=== PATIENT | female | born 1965 | race Caucasian/White ===

== ENCOUNTER 2017-04-05 11:56 | Observation (INO) ==
[2017-04-05] MEDS ORDERED: Aspirin 81 MG TAB.CHEW PO ONE (12:26)
[2017-04-05] MEDS ORDERED: 0.9 % Sodium Chloride 500 ML IVC ONE (12:26)
[2017-04-05 12:36] LABS: Basophils # 0.1 K/mcL (0.0-0.2); Basophils % 0.7 %; Eosinophils # 0.4 K/mcL (0.0-0.6); Eosinophils % 2.9 %; Hematocrit 41.3 % (35.3-44.9); Hemoglobin 12.5 g/dL (11.5-15.4); Immature Granulocytes % 0.4 % (0-4); Lymphocytes # 3.4 K/mcL (0.6-4.6); Lymphocytes % 24.3 %; Mean Corpuscular HGB Conc 30.3 g/dL (31.6-35.5); Mean Corpuscular Hemoglobin 22.9 pg (28.0-33.3); Mean Corpuscular Volume 75.6 fL (83.0-100.0); Mean Platelet Volume 9.2 fL (9.4-12.4); Monocytes # 0.8 K/mcL (0.0-1.3); Monocytes % 5.6 %; Neutrophils # 9.2 K/mcL (1.6-8.9); Platelet Count 329 K/mcL (140-400); Red Blood Count 5.46 M/mcL (3.82-4.97); Red Cell Distribution Width 15.7 % (11.5-14.5); Segmented Neutrophils % 66.1 %
[2017-04-05 12:52] LABS: BUN/Creatinine Ratio 19 (6-26); Blood Urea Nitrogen 12 mg/dL (6-20); Calcium 9.2 mg/dL (8.6-10.3); Carbon Dioxide 27 mEq/L (23-29); Chloride 101 mEq/L (98-107); Glucose 123 mg/dL (70-105); Osmolality,Calculated 283 (280-300); Potassium 3.8 mEq/L (3.5-5.1); Sodium 136 mEq/L (136-145); eGFR For African Americans > 60 (> 60); eGFR For Non-African Americans > 60 (> 60)
--- NOTE | 2017-04-05 13:15 | Emergency Department Note ---
Disposition Clinical Impression: Unstable angina pectoris Disposition: Admitted As Inpatient Condition: Fair Referrals: Aylin Ohara MD [Partnered Physician] - Forms: ED Satisfaction Letter Time of Disposition: 15:39 Chest Pain HPI - General Chief Complaint: ED Chest Pain Stated Complaint: CP Time Seen by Provider: 04/05/17 12:08 Source: patient Limitations: no limitations Vital Signs Reviewed: Yes Nursing Notes Reviewed: Yes - History of Present Illness HPI Narrative: 51-year-old female presented to the emergency department complaining of chest pain. Patient is also having back pain that is right between her shoulder blades. Patient has no history of aneurysms. She does have history of previous mini strokes. Patient is on multiple OCP due to endometriosis. Patient states this chest pain began approximately 4 days ago. She says it is in the center of her chest radiating to the left side. She says is a 6/10 she is goes up more as pressure. She has not taken anything for this. Patient says she has had no nausea or vomiting with this. Says she feels like there is a sharp stabbing pain every once in while when her heart is beating that she can feel which is very abnormal for her. Patient has no other cardiac issues. She has no cardiac family history. Patient has no other complaints including no headaches, blurry vision, neck pain, back pain, fevers, chills, nausea, vomiting, shortness of breath, abdominal pain, pain or tingling in any arms or legs, changes in bowel movement, pain with urination or any generalized weakness. Severity scale (1-10): 7 - Related Data Home Medications Medication Instructions Recorded Confirmed Aspirin 01/08/17 Omeprazole 01/08/17 Spironolactone 01/08/17 metFORMIN 01/08/17 Allergies Allergy/AdvReac Type Severity Reaction Status Date / Time venom-honey bee AdvReac Swelling Verified 04/05/17 12:13 [bee venom (honey bee)] of Lip/Tongue/Throat Review of Systems: 10 point review of systems done and negative unless otherwise stated in history of present illness. All systems ED: reviewed and negative except as stated. Review of Systems: As Per HPI Chest Pain PMH - Past Medical History Medical history: Reports: TIA, other Surgical history: Reports: cholecystectomy, orthopedic, other Psychiatric history: Reports: no psych history SLOT FLOORPERSON history: Reports: non-contributory - Social History Smoking Status: 2nd Hand Smoke Exposure Alcohol use: Reports: none Drug use: Reports: none Physical Exam - General Limitations: no limitations General appearance: alert, in no apparent distress - Head Head exam: atraumatic, normocephalic, normal inspection - Eye Eye exam: Present: normal appearance, PERRL, EOMI - ENT ENT exam: normal exam, normal oropharynx, mucous membranes moist - Neck Neck exam: Present: normal inspection, full ROM, trachea midline - Chest Chest inspection: Present: normal inspection, symmetric chest wall rise - Respiratory Respiratory exam: Present: normal lung sounds bilaterally. Absent: respiratory distress, wheezes, stridor, accessory muscle use, prolonged expiratory phase - Cardiovascular Cardiovascular exam: Present: regular rate, normal rhythm, normal heart sounds - Abdominal Exam Abdominal exam: Present: soft, Non-Tender. Absent: tenderness, distention, guarding, rebound, rigidity - Extremities Exam Extremities exam: Present: normal inspection, full ROM. Absent: tenderness, pedal edema - Expanded Lower Extremity Exam Neurovascular/Tendon exam: Present: normal capillary refill. Absent: pulse deficit, motor deficit, sensory deficit, tendon deficit Gait: observed and normal - Back Exam Back exam: Present: normal inspection, full ROM. Absent: tenderness, CVA tenderness (R), CVA tenderness (L) - Neurological Exam Neurological exam: Present: alert, oriented X3 - Skin Skin exam: Present: warm, dry, intact, normal color Course Course Narrative: 51-year-old female presents to the emergency department with chest pain. There is worry about possible peroneal motion or aortic aneurysm. So we will get CT angios of her chest. We will also give basics chest pain workup including CBC and BMP as well as troponin as well as EKG and chest x-ray. Patient's okay with that plan. Disposition pending results. Vital Signs Temperature 98.0 F 04/05/17 12:10 Pulse Rate 95 04/05/17 12:10 Respiratory Rate 04/05/17 12:10 Blood Pressure 140/87 04/05/17 12:10 O2 Sat by Pulse Oximetry 99 04/05/17 12:10 Temperature 98.0 F 04/05/17 12:10 Pulse Rate 95 04/05/17 12:10 Respiratory Rate 18 04/05/17 12:10 Blood Pressure 140/87 04/05/17 12:10 O2 Sat by Pulse Oximetry 99 04/05/17 12:10 Oxygen Delivery Oxygen Delivery Room Air Chest Pain - MDM Narrative Medical decision making narrative: 51-year-old female presents in the emergency department with chest pain she has a history of PFO. She has not seen a test operator since being diagnosed rectally 10:15 years ago where she had an echo and services that time. She does not have a test operator. Patient's chest pain has been going on for 3 days but did worsen today is with her caused her to come in. We did give patient aspirin but did not give nitroglycerin due to her being mildly hypotensive. Did do chest x-ray which was normal as well as labs that were normal including a normal troponin. We did do CT angios of the chest as patient does take OCPs in the umbilicus could be a pulmonary embolism this came back negative for pulmonary and was not or aortic aneurysm. There was no signs pneumonia as well. Due to patient not having recent stress test or echocardiogram without admission would be no serious she is still having chest pain. Patient agreed with this plan. I spoke with the hospitalist, Dr. Santana agreed to admit the patient to their service. Patient is admitted in stable condition. Chest CTA 04/05/17 12:26 IMPRESSION: No evidence of pulmonary embolism or acute pulmonary abnormality. D/ / Ravi Elkins MD / Ravi Elkins MD Interpreting Provider: Ravi Elkins MD Chest X-Ray 04/05/17 12:26 IMPRESSION: No acute process. D/ / Ravi Elkins MD / Ravi Elkins MD Interpreting Provider: Ravi Elkins MD - Medical Records Medical records reviewed: Yes I reviewed the patient's medical records. - Lab Data Lab results reviewed: Yes I reviewed the patient's lab results. Result diagrams: 04/05/17 12:15 04/05/17 12:15 Lab Results 01/04/05/17 04/05/17 Range/Units 12:15 12:15 12:15 WBC 14.0 H (4.3-11.1) K/mcL RBC 5.46 H (3.82-4.97) M/mcL Hgb 12.5 (11.5-15.4) g/dL Hct 41.3 (35.3-44.9) % MCV 75.6 L (83.0-100.0) fL MCH 22.9 L (28.0-33.3) pg MCHC 30.3 L (31.6-35.5) g/dL RDW 15.7 H (11.5-14.5) % Plt Count 329 (140-400) K/mcL MPV 9.2 L (9.4-12.4) fL Immature Gran % 0.4 (0-4) % Seg Neutrophils % 66.1 % Lymphocytes % 24.3 % Monocytes % 5.6 % Eosinophils % 2.9 % Basophils % 0.7 % Neutrophils # 9.2 H (1.6-8.9) K/mcL Lymphocytes # 3.4 (0.6-4.6) K/mcL Monocytes # 0.8 (0.0-1.3) K/mcL Eosinophils # 0.4 (0.0-0.6) K/mcL Basophils # 0.1 (0.0-0.2) K/mcL PT 11.0 (9.4-12.1) Seconds INR 1.0 APTT 33.0 (26.0-36.0) Seconds Sodium (136-145) mEq/L Potassium (3.5-5.1) mEq/L Chloride (98-107) mEq/L Carbon Dioxide (23-29) mEq/L BUN (6-20) mg/dL Creatinine (0.60-1.20) mg/dL Est GFR ( Amer) (> 60) Est GFR (Non-Af Amer) (> 60) BUN/Creatinine Ratio (6-26) Glucose (70-105) mg/dL Calculated Osmolality (280-300) Calcium (8.6-10.3) mg/dL Troponin I (< 0.04) ng/mL B-Natriuretic Peptide 18 (Less than 100) pg/mL 01/29/18 01/29/18 Range/Units 12:15 12:15 WBC (4.3-11.1) K/mcL RBC (3.82-4.97) M/mcL Hgb (11.5-15.4) g/dL Hct (35.3-44.9) % MCV (83.0-100.0) fL MCH (28.0-33.3) pg MCHC (31.6-35.5) g/dL RDW (11.5-14.5) % Plt Count (140-400) K/mcL MPV (9.4-12.4) fL Immature Gran % (0-4) % Seg Neutrophils % % Lymphocytes % % Monocytes % % Eosinophils % % Basophils % % Neutrophils # (1.6-8.9) K/mcL Lymphocytes # (0.6-4.6) K/mcL Monocytes # (0.0-1.3) K/mcL Eosinophils # (0.0-0.6) K/mcL Basophils # (0.0-0.2) K/mcL PT (9.4-12.1) Seconds INR APTT (26.0-36.0) Seconds Sodium 136 (136-145) mEq/L Potassium 3.8 (3.5-5.1) mEq/L Chloride 101 (98-107) mEq/L Carbon Dioxide 27 (23-29) mEq/L BUN 12 (6-20) mg/dL Creatinine 0.64 (0.60-1.20) mg/dL Est GFR ( Amer) > 60 (> 60) Est GFR (Non-Af Amer) > 60 (> 60) BUN/Creatinine Ratio 19 (6-26) Glucose 123 H (70-105) mg/dL Calculated Osmolality 283 (280-300) Calcium 9.2 (8.6-10.3) mg/dL Troponin I < 0.03 (< 0.04) ng/mL B-Natriuretic Peptide (Less than 100) pg/mL - Radiology Data Radiology results reviewed: Yes I reviewed the patient's radiology results. - EKG Data EKG attestation: Yes I reviewed and interpreted this EKG. EKG results narrative: EKG done at 1216 reviewed by myself and the attending shows sinus tachycardia at a rate of 116, CA 149, QRS 82, QTc 382 with a leftward axis. There is no acute ST changes no acute T-wave changes no other signs of ischemia. No signs of hypertrophy or heart block or heart strain. No signs of WPW/Brugada syndrome. Overall this EKG is unchanged when compared with old one done 04/15/04 Heart Score - Score History: Moderately Suspicious EKG: Non Specific repolarisation Disturbance Age: 45-65 Risk Factors: 1-2 risk factors Troponin: Less than normal limit HEART Score Total: 4 Attestation Statement - Attestation Attestation: I, Jordin Holley DO, examined this patient [id number] and my medical decision-making was reviewed with Dr. Dwight Bailey , Resident Physician. I agree with the documented findings, disposition and treatment plan as described except to the extent set forth below. Please see my progress notes for details. 51-year-old female presents emergency room with chest pressure and discomfort that has a scintillating like symptom presents here to the emergency room. 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 Patient is currently on a full aspirin twice a day. Denies any other blood thinners. He said trauma or injury. Denies fevers chills nausea vomiting diarrhea. Denies any headache vision changes. Shortness of breath which has a chest pressure and pain. Patient has tachycardia on EKG with no acute ST segment elevation or abnormality. Patient is concerning for cardiac versus pulmonary-related source of symptoms. She has no history of blood clot in her lungs does have a patent foramen ovale as well as history of TIAs and clots. Prophylactically patient will be evaluated with EKG chest x-ray and cardiac evaluation. She also CT of the chest ruling out any angiography related issues including dissection or aneurysm or blood clots. Patient will be recommended for admission once his workup is completed. Patient was symptom- free at this point in no acute symptoms pain or issues at this time. Currently she denies any issues at this point. Physical exam is unremarkable she is sitting upright in bed speaking full sentences conversationally without any acute distress or issue. Her lungs are clear heart is regular but tachycardic. Abdomen soft nontender nondistended with no guarding or rigidity and no peritoneal symptoms. Patient has no signs of pitting edema. She moves all 4 shoulders without any difficulty she is alert she is oriented. Patient will most likely need admission for definitive management. 1500 Patient is otherwise stable. CT angiography of the chest is negative. Patient otherwise is symptom free at this point. The concern is for the chest tightness pressure at this time. Patient electively decided to be admitted to the hospital. Aspirin has been provided. No other concerns or issues are noted. Patient will be admitted.
[2017-04-05] MEDS ORDERED: Naloxone 0.4 MG/ML INJ IVP PRN (16:08)
--- NOTE | 2017-04-05 16:19 | Event Note ---
Date of Encounter: 04/05/17 Time of Encounter: 16:17 1 chest pain Telemetry, troponins, aspirin Lipid panel, statin, nitroglycerin as needed Stress test and echocardiogram in the morning 2. Diabetes type 2 not insulin-dependent, use insulin sliding scale 3. Tachycardia, nonspecific, consider viral infection 4. Possible history of ASD will be confirmed with echocardiogram 5. History of polycystic ovarian syndrome 6. Obstructive sleep apnea 7. GERD 8. History of TIAs Omeprazole for GI prophylaxis and subcutaneous heparin for DVT prophylaxis. The patient will be admitted for observation, full code. Time spent on this admission 40 minutes. H&P will be completed by resident Zunilda Garcia
--- NOTE | 2017-04-05 16:22 | Internal Med History&Physical ---
<Zunilda Villegas - Last Filed: 04/05/17 16:52> Date of Encounter: 04/05/17 Time of Encounter: 16:00 Assessment and Plan (1) Chest pain Current visit: Yes Status: Acute Chest pain since . While washing dishes or lying down. Sharp, radiates across chest and between scapula. Worse with lying down. last 20-40 min. Nothing makes it better. consider pericarditis vs ACS. CTA ruled out aortic dissection and PE EKG sinus tachycardia with no ST changes troponin < 0.03 CTA normal, no PE CXR no acute cardiopulmonary process She reports history of patent foramen oval. order echo plan -Stress test and echocardiogram in the morning -Telemetry -trend troponins -aspirin -Lipid panel -statin -nitroglycerin prn Qualifiers: Qualified Code(s): R07.9 - Chest pain, unspecified (2) Tachycardia Current visit: Yes Status: Acute Unknown why tachycardia. Possible infectious etiology such as viral. WBC 14 ordered urinalysis monitor WBC (3) Diabetes Current visit: Yes Status: Acute history of diabetes taking metformin glucose stable continue to monitor Low dose sliding scale accu checks Qualifiers: Qualified Code(s): E11.9 - Type 2 diabetes mellitus without complications (4) Polycystic ovarian syndrome Current visit: Yes Status: Acute history of POS. used to take OCP but stopped due to TIA. (5) GERD (gastroesophageal reflux disease) Current visit: Yes Status: Acute history of GERD continue PPI Qualifiers: Esophagitis presence: esophagitis presence not specified Qualified Code(s) : K21.9 - Gastro-esophageal reflux disease without esophagitis (6) History of TIA (transient ischemic attack) Current visit: Yes Status: Acute History of multiple TIA due to taking control pills for polycystic ovarian syndrome. She reports she was also told she has some type of blood clotting disorder for which she takes a baby aspirin everyday. (7) Obstructive sleep apnea Current visit: Yes Status: Acute (8) DVT prophylaxis Current visit: Yes Status: Acute heparin sq Internal Medicine - H&P: HPI Chief complaint: chest pain Admitted From: Emergency Dept Plans for Post Hospital Care: Home History of present illness: Ms. Rojas is a 51 year old female with a past medical history of TIA, polycystic ovary disease, patent foramen oval who presented to [facility] complaining of chest pain that began . She stated she was washing dishes when she had a sharp pain go across her chest to the right and between her shoulder blades. She was dizzy, diaphoresis, and short of breathe. She stated nothing made it better but she noticed it more when she would lay down in bed at night. The pain would last from 20-40minutes then go away. This happened a few times over the weekend and then when it happened today she went to her family doctor who sent her to the ED. She denies recent sickness, travel, trauma. She has never had a NE, PE, DVT but believes she has some blood clotting disorder for which she takes a baby aspirin for daily. She has had multiple TIAs years ago when she was on control for POS. She no longer takes OCP. She reports having been told she has a patent foramen oval. She does not drink alcohol, drugs, or smoke. She has no family history of heart disease. 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 She does not know when her last echo was and does not have a medical affairs manager. In ED EKG showed sinus tachycardia with no change in ST segment. Troponin was normal. CTA normal. CXR normal. Upon my examination she did not have chest pain. She is full code. Past Med Surg Social Fam HX - Past Medical History Medical history: TIA, other (polycystic ovarian syndrome) Psychiatric history: no psych history - Past Surgical History Surgical History: cholecystectomy, orthopedic, other - Social History Smoking Status: 2nd Hand Smoke Exposure Smokeless Tobacco Status: No Alcohol use: none Drug use: none Current living situation: Home - Independent - Family History Mother Hx Family Endocrine Disorder: Yes (diabetes) Internal Medicine - H&P: Meds Aspirin 325 mg PO BID 01/08/17 [History] Omeprazole [PriLOSEC] 40 mg PO DAILY 01/08/17 [History] Spironolactone [Aldactone] 25 mg PO DAILY 01/08/17 [History] metFORMIN [Glucophage] 500 mg PO BIDWM 01/08/17 [History] Albuterol Sulfate [Proair Hfa] 2 puff IH Q4H PRN 04/05/17 [History] Fluticasone Propionate Nasal [Flonase] 2 spray NS BID PRN 04/05/17 [History] Ipratropium [place] 2 spray NS BID PRN 04/05/17 [History] Mometasone/Formoterol [Dulera 200 Mcg/5 Mcg Inhaler] 2 puff IH BID PRN 04/05/17 [History] Phenazopyridine [Pyridium] 100 mg PO TIDWM 04/05/17 [History] Sulfamethoxazole/Trimeth DS [Bactrim DS] 1 each PO BID 04/05/17 [History] Turmeric Root Extract [Turmeric] 500 mg PO DAILY 04/05/17 [History] 3 Allergy/AdvReac Type Severity Reaction Status Date / Time venom-honey bee AdvReac Swelling Verified 04/05/17 12:13 [bee venom (honey bee)] of Lip/Tongue/Throat All Systems PM: A 10-system review of systems was performed and is negative for pertinent findings except as documented above in the HPI. - Constitutional Constitutional: no chills, no fever(s), no weakness - EENT Eyes: no change in vision - Cardiovascular Cardiovascular ROS IM: chest pain, diaphoresis, lightheadedness, paroxysmal nocturnal dyspnea, no palpitations, no syncope - Respiratory Respiratory: dyspnea, no cough, no hemoptysis, no wheezing - Gastrointestinal Gastrointestinal: no abdominal pain, no hematemesis, no melena, no nausea, no vomiting - Musculoskeletal Musculoskeletal ROS IM: back pain - Integumentary Integumentary IM: new lesions (scratches ) - Neurological Neurological ROS: no abnormal gait - Constitutional Vitals: Temp Pulse Resp BP Pulse Ox 98.0 F 95 18 140/87 99 04/05/17 12:10 04/05/17 12:10 04/05/17 12:10 04/05/17 12:10 04/05/17 12:10 General appearance: Present: A&O X 3, pleasant, no acute distress - Head Head exam: Present: atraumatic, normal inspection - Eye Eye exam: Present: normal appearance. Absent: scleral icterus - Respiratory Respiratory exam: Present: CTAB. Absent: rales, wheezes - Cardiovascular Cardiovascular exam: Present: RRR, +S1, +S2. Absent: clicks - GI/Abdominal GI/Abdominal exam: Present: normal bowel sounds, soft. Absent: tenderness - Extremities Exam Extremities exam: Present: normal inspection. Absent: tenderness - Neurological Exam Neurological exam: Present: alert, oriented X3 - Psychiatric Psychiatric exam: Present: normal affect, normal mood - Skin Skin exam: Present: dry, excoriation, intact Internal Med - H&P Results - Labs CBC & Chem 7: 04/05/17 12:15 04/05/17 12:15 Labs: Short CBC 04/05/17 Range/Units 12:15 WBC 14.0 H (4.3-11.1) K/mcL Hgb 12.5 (11.5-15.4) g/dL Hct 41.3 (35.3-44.9) % Plt Count 329 (140-400) K/mcL Neutrophils # 9.2 H (1.6-8.9) K/mcL BMP 04/05/17 12:15 Sodium 136 Potassium 3.8 Chloride 101 Carbon Dioxide 27 BUN 12 Creatinine 0.64 Glucose 123 H Calcium 9.2 Cardiac Enzymes 04/05/17 Range/Units 12:15 Troponin I < 0.03 (< 0.04) ng/mL - Impressions ITS Impressions Chest CTA 04/05/17 12:26 IMPRESSION: No evidence of pulmonary embolism or acute pulmonary abnormality. D/ / Ravi Elkins MD / Ravi Elkins MD Interpreting Provider: Ravi Elkins MD Chest X-Ray 04/05/17 12:26 IMPRESSION: No acute process. D/ / Ravi Elkins MD / Ravi Elkins MD Interpreting Provider: Ravi Elkins MD <Ole Ortiz H - Last Filed: 04/05/17 17:34> Date of Encounter: 04/05/17 Internal Medicine - H&P: HPI History of present illness: Ms. Rojas is a 51 year old female All Systems PM: A 10-system review of systems was performed and is negative for pertinent findings except as documented above in the HPI. - Constitutional Vitals: Temp Pulse Resp BP Pulse Ox 98.1 F 89 18 115/54 98 04/05/17 16:59 04/05/17 16:59 04/05/17 16:59 04/05/17 16:59 04/05/17 16:59 Internal Med - H&P Results - Labs CBC & Chem 7: 04/05/17 12:15 04/05/17 12:15 - Attending Attestation 1 chest pain Telemetry, troponins, aspirin Lipid panel, statin, nitroglycerin as needed Stress test and echocardiogram in the morning 2. Diabetes type 2 not insulin-dependent, use insulin sliding scale 3. Tachycardia, nonspecific, consider viral infection 4. Possible history of ASD will be confirmed with echocardiogram 5. History of polycystic ovarian syndrome 6. Obstructive sleep apnea 7. GERD 8. History of TIAs Omeprazole for GI prophylaxis and subcutaneous heparin for DVT prophylaxis. The patient will be admitted for observation, full code. Time spent on this admission 40 minutes. Additional past medical history: Endometriosis, diabetes type 2 not insulin- dependent, GERD, TIAs, obstructive sleep apnea, possible ASD, migraines Surgical history cholecystectomy, back surgeries, cataract surgeries, tonsillectomy and adenoidectomy Family history father with hypertension, sister with seizures and narcolepsy. Mother with hypertension and diabetes I examined this patient and my medical decision-making was reviewed with the Resident Physician. I agree with the documented findings, disposition and treatment plan as described except to the extent set forth below.
[2017-04-05] MEDS ORDERED: Nitroglycerin 0.4 MG TAB.SUBL SL PRN (16:31)
[2017-04-05 17:05] LABS: Chol/HDL Ratio 4.4 (0-4.9); Cholesterol 203 mg/dL (< 200); HDL Cholesterol 46 mg/dL (40-59); LDL Cholesterol,Calculated 121 mg/dL (0-99); Triglycerides 181 mg/dL (< 150)
[2017-04-05] MEDS: *HR* Heparin 5,000 UNIT/ML VIAL SQ SCH (18:52)
[2017-04-05] MEDS: Acetaminophen 325 MG TABLET PO PRN (21:26)
[2017-04-06 01:18] LABS: Bilirubin,Urine Negative (Negative); Blood,Urine Trace (Negative); Clarity,Urine Cloudy (Clear); Color,Urine Yellow (Yellow); Glucose,Urine (UA) Normal (Normal); Ketones,Urine Negative (Negative); Leukocyte Esterase,Urine Moderate (Negative); Nitrite,Urine Positive (Negative); PH,Urine 6.5 pH Units (5.0-8.0); Protein,Urine Negative (Neg-Trace); Specific Gravity,Urine 1.018 (1.010-1.025); Urobilinogen,Urine Normal (Normal)
[2017-04-06 01:19] LABS: Basophils # 0.1 K/mcL (0.0-0.2); Basophils % 0.6 %; Eosinophils # 0.3 K/mcL (0.0-0.6); Eosinophils % 2.4 %; Hemoglobin 11.4 g/dL (11.5-15.4); Immature Granulocytes % 0.2 % (0-4); Lymphocytes # 3.9 K/mcL (0.6-4.6); Lymphocytes % 34.5 %; Mean Corpuscular HGB Conc 29.2 g/dL (31.6-35.5); Mean Corpuscular Hemoglobin 23.2 pg (28.0-33.3); Mean Corpuscular Volume 79.3 fL (83.0-100.0); Mean Platelet Volume 9.6 fL (9.4-12.4); Monocytes # 0.8 K/mcL (0.0-1.3); Monocytes % 6.9 %; Neutrophils # 6.2 K/mcL (1.6-8.9); Platelet Count 303 K/mcL (140-400); Red Blood Count 4.92 M/mcL (3.82-4.97); Red Cell Distribution Width 15.9 % (11.5-14.5); Segmented Neutrophils % 55.4 %
[2017-04-06 01:22] LABS: Bacteria,Urine Many per hpf (None-Few); Hyaline Casts,Urine None Seen per lpf (None-Few); RBC,Urine 0-3 per hpf (0-3); Squamous Epithelial Cell,Urine Many per lpf (None-Few)
[2017-04-06 01:36] LABS: BUN/Creatinine Ratio 21 (6-26); Blood Urea Nitrogen 15 mg/dL (6-20); Calcium 8.9 mg/dL (8.6-10.3); Carbon Dioxide 25 mEq/L (23-29); Chloride 105 mEq/L (98-107); Glucose 136 mg/dL (70-105); Osmolality,Calculated 289 (280-300); Sodium 138 mEq/L (136-145); eGFR For African Americans > 60 (> 60); eGFR For Non-African Americans > 60 (> 60)
[2017-04-06] MEDS: *HR* Heparin 5,000 UNIT/ML VIAL SQ SCH ×2 (06:12→18:21)
[2017-04-06] MEDS: Acetaminophen 325 MG TABLET PO PRN (06:14)
[2017-04-06] MEDS ORDERED: Regadenoson 0.4 MG/5 ML SYRINGE IVP ONE (06:36)
[2017-04-06] MEDS: Insulin LISPRO 300 UNITS/3 ML VIAL SQ SCH ×3 (07:51→17:31)
[2017-04-06] MEDS: Aspirin Enteric Coated 81 MG Tablet PO SCH (10:58)
[2017-04-06] MEDS: Spironolactone 25 MG TABLET PO SCH (10:58)
--- NOTE | 2017-04-06 12:56 | Internal Med Progress Note ---
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 Qualified Code(s): E11.9 - Type 2 diabetes mellitus without complications (3) Tachycardia Current Visit: Yes Status: Acute Assessment and plan: Likely secondary to UTI IV fluids (4) Polycystic ovarian syndrome Current Visit: Yes Status: Acute (5) History of TIA (transient ischemic attack) Current Visit: Yes Status: Acute Assessment and plan: ASA (6) Obstructive sleep apnea Current Visit: Yes Status: Acute (7) UTI (urinary tract infection) Current Visit: Yes Status: Acute Assessment and plan: Rocephin Send culture Qualifiers: Urinary tract infection type: acute cystitis Hematuria presence: without hematuria Qualified Code(s): N30.00 - Acute cystitis without hematuria - Subjective Interval history: Complains of dysuria, denies any chest pain, no abdominal pain, no fevers, no diarrhea, no chills, palpitations at times - Constitutional Vitals: Temp Pulse Resp BP Pulse Ox 98.0 F 88 18 133/85 99 04/06/17 10:56 04/06/17 10:56 04/06/17 10:56 04/06/17 10:56 04/06/17 10:56 General appearance: Present: A&O X 3, pleasant, no acute distress, obese - Head Head exam: Present: atraumatic, normocephalic - Eye Eye exam: Present: PERRL, conjuntiva pink, sclera anicteric Pupils: Present: PERRL - Neck Neck exam general surgery: Present: supple, trachea midline. Absent: lymphadenopathy - Respiratory Respiratory exam: Present: CTAB. Absent: accessory muscle use, rales, rhonchi, wheezes - Cardiovascular Cardiovascular exam: Present: RRR, +S1, +S2. Absent: diastolic murmur, gallop, rubs, systolic murmur - GI/Abdominal GI/Abdominal exam: Present: normal bowel sounds, soft, no peritoneal signs. Absent: distended, tenderness - Extremities Exam Extremities exam: Present: warm, radial pulses palpable and symmetrical. Absent : calf tenderness, cyanotic, pedal edema - Neurological Exam Neurological exam: Present: CN II-XII intact, oriented X3, no focal deficits. Absent: pronater drift, facial droop, speech deficit - Skin Skin exam: Present: dry, intact Internal Medicine: Result - Labs CBC & Chem 7: 04/06/17 00:51 04/06/17 00:51 Labs: Short CBC 04/06/17 Range/Units 00:51 WBC 11.2 H (4.3-11.1) K/mcL Hgb 11.4 L (11.5-15.4) g/dL Hct 39.0 (35.3-44.9) % Plt Count 303 (140-400) K/mcL Neutrophils # 6.2 (1.6-8.9) K/mcL BMP 04/06/17 00:51 Sodium 138 Potassium 4.0 Chloride 105 Carbon Dioxide 25 BUN 15 Creatinine 0.71 Glucose 136 H Calcium 8.9 Cardiac Enzymes 04/05/17 04/06/17 Range/Units 18:17 00:51 Troponin I < 0.03 < 0.03 (< 0.04) ng/mL Urine 04/06/17 Range/Units 01:00 Urine Color Yellow (Yellow) Urine Clarity Cloudy A (Clear) Urine pH 6.5 (5.0-8.0) pH Units Ur Specific [place] 1.018 (1.010-1.025) Urine Protein Negative (Neg-Trace) mg/dL Urine Glucose (UA) Normal (Normal) mg/dL - ABG Interpretation ABG results: PT/INR, D-dimer PT 11.0 Seconds (9.4-12.1) 04/05/17 12:15 Consult Discharge Plan - Plan Referrals: Aylin Ohara MD [Primary Care Provider] - 04/09/17 2:00 pm
[2017-04-06] MEDS: cefTRIAXone 1,000 MG in Water for inj. (sterile) 10 ML IVP SCH (14:27)
[2017-04-06] MEDS: 0.9 % Sodium Chloride 1,000 ML IVC SCH (14:27)
--- NOTE | 2017-04-06 19:35 | Electrocardiograph Report ---
[place] [id number] Test Date: 2017-04-05 Pat Name: Carrol Rojas Department: 104 Room: 3B13 Gender: F [employer] Specialist: : [id number] Requested By: Dwight Bailey Order Number: [id number] Reading MD: Maria Isabel Siddiqui Measurements Intervals [place] Rate: 116 P: 37 TN: 149 QRS: -26 QRSD: 82 T: 28 QT: 313 QTc: 382 Interpretive Statements SINUS TACHYCARDIA BORDERLINE LEFT AXIS DEVIATION ABNORMAL RHYTHM ECG Electronically Signed On 04-06-2017 19:33:37 EST by Maria Isabel Siddiqui
[2017-04-07] MEDS: 0.9 % Sodium Chloride 1,000 ML IVC SCH (04:00)
[2017-04-07] MEDS: *HR* Heparin 5,000 UNIT/ML VIAL SQ SCH (05:20)
[2017-04-07] MEDS: Budesonide/Formoterol 160/4.5 MDI IH SCH (06:56)
[2017-04-07] MEDS: cefTRIAXone 1,000 MG in Water for inj. (sterile) 10 ML IVP SCH (08:04)
[2017-04-07] MEDS: Spironolactone 25 MG TABLET PO SCH (08:05)
[2017-04-07] MEDS: Aspirin Enteric Coated 81 MG Tablet PO SCH (08:05)
[2017-04-07] MEDS: Insulin LISPRO 300 UNITS/3 ML VIAL SQ SCH ×2 (08:12→11:42)
[2017-04-07 08:14] VITALS: BP 118/80
--- NOTE | 2017-04-07 09:55 | Discharge Summary ---
Date of Encounter: 04/07/17 Time of Encounter: 09:51 - Discharge Diagnosis (1) Chest pain Priority: Primary Status: Acute Qualifiers: Qualified Code(s): R07.9 - Chest pain, unspecified (2) UTI (urinary tract infection) Priority: Secondary Status: Acute Qualifiers: Urinary tract infection type: acute cystitis Hematuria presence: without hematuria Qualified Code(s): N30.00 - Acute cystitis without hematuria (3) Tachycardia Priority: Secondary Status: Acute Comments: Secondary to urinary tract infection (4) Polycystic ovarian syndrome Priority: Secondary Status: Acute (5) History of TIA (transient ischemic attack) Priority: Secondary Status: Acute (6) Obstructive sleep apnea Priority: Secondary Status: Acute (7) Diabetes Priority: Secondary Status: Acute Qualifiers: Diabetes mellitus type: type 2 Diabetes mellitus complication status: without complication 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: without 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 Qualified Code(s): E11.9 - Type 2 diabetes mellitus without complications - Discharge Medications Prescriptions: Atorvastatin [Lipitor] 20 mg PO HS #30 tablet cephALEXin [Cephalexin] 500 mg PO Q6H #12 tablet Home Medications: Aspirin 325 mg PO BID 01/08/17 [History] Omeprazole [PriLOSEC] 40 mg PO DAILY 01/08/17 [History] Spironolactone [Aldactone] 25 mg PO DAILY 01/08/17 [History] metFORMIN [Glucophage] 500 mg PO BIDWM 01/08/17 [History] Albuterol Sulfate [Proair Hfa] 2 puff IH Q4H PRN 04/05/17 [History] Fluticasone Propionate Nasal [Flonase] 2 spray NS BID PRN 04/05/17 [History] Ipratropium [place] 2 spray NS BID PRN 04/05/17 [History] Mometasone/Formoterol [Dulera 200 Mcg/5 Mcg Inhaler] 2 puff IH BID PRN 04/05/17 [History] Phenazopyridine [Pyridium] 100 mg PO TIDWM 04/05/17 [History] Turmeric Root Extract [Turmeric] 500 mg PO DAILY 04/05/17 [History] Atorvastatin [Lipitor] 20 mg PO HS #30 tablet 04/07/17 [Rx] cephALEXin [Cephalexin] 500 mg PO Q6H #12 tablet 04/07/17 [Rx] Allergies/Adverse Reactions: 3 Allergy/AdvReac Type Severity Reaction Status Date / Time venom-honey bee AdvReac Swelling Verified 04/05/17 12:13 [bee venom (honey bee)] of Lip/Tongue/Throat Date of admission: 04/05/17 16:13 Primary care physician: Aylin Ohara, - Patient Status Disposition: Home, Self-Care Condition: Good Overall status at discharge: patient is back to baseline - Discharge Instructions Follow Up With: Aylin Ohara MD [Primary Care Provider] - 04/09/17 2:00 pm Additional Instructions: Follow-up with primary care physician within the next 7 days. Start Lipitor for hypercholesterolemia. Complete 3 more days of cephalexin. - Diet and Activity Activity: increase activity as tolerated Diet: low fat, low cholesterol Hospital course: Ms. Rojas is a 51 year old female with a past medical history of TIA, polycystic ovary disease, endometriosis, migraines, diabetes type 2 not insulin- dependent, obstructive sleep apnea, GERD, patent foramen oval who presented to [facility] complaining of chest pain that began . She stated she was washing dishes when she had a sharp pain go across her chest to the right and between her shoulder blades. She was dizzy, diaphoresis, and short of breathe. She stated nothing made it better but she noticed it more when she would lay down in bed at night. The pain would last from 20-40minutes then go away. This happened a few times over the weekend and then when it happened today she went to her family doctor who sent her to the ED. She denies recent sickness, travel , trauma. She has never had a RI, PE, DVT but believes she has some blood clotting disorder for which she takes a baby aspirin for daily. She has had multiple TIAs years ago when she was on control for POS, also related to PFO. She no longer takes OCP. She reports having been told she has a patent foramen oval. She does not drink alcohol, drugs, or smoke. She has no family history of heart disease. In ED EKG showed sinus tachycardia with no change in ST segment. Troponin was normal. CTA normal. CXR normal. Upon my examination she did not have chest pain. Was found to have an UTI, Rocephin was started. The culture showed Escherichia coli that was pansensitive. Echocardiogram showed an ejection fraction of 60% and mild diastolic dysfunction. PFO is present Stress test showed no evidence of ischemia or infarct. Triglycerides were 181, cholesterol 203, LDL 121, VLDL 36, HDL 46 - Time Spent with Patient Total time spent providing and/or coordinating discharge services: Greater than 30 minutes (40 min) - Constitutional Vitals: Temp Pulse Resp BP Pulse Ox 97.7 F 75 16 118/80 98 04/07/17 08:12 04/07/17 08:12 04/07/17 08:12 04/07/17 08:12 04/07/17 08:13 General appearance: Present: A&O X 3, pleasant, no acute distress, obese - Head Head exam: Present: atraumatic, normocephalic - Eye Eye exam: Present: PERRL, conjuntiva pink, sclera anicteric Pupils: Present: PERRL - Neck Neck exam general surgery: Present: supple, trachea midline. Absent: lymphadenopathy - Respiratory Respiratory exam: Present: CTAB. Absent: accessory muscle use, rales, rhonchi, wheezes - Cardiovascular Cardiovascular exam: Present: RRR, +S1, +S2. Absent: diastolic murmur, gallop, rubs, systolic murmur - GI/Abdominal GI/Abdominal exam: Present: normal bowel sounds, soft, no peritoneal signs. Absent: distended, tenderness - Extremities Exam Extremities exam: Present: warm, radial pulses palpable and symmetrical. Absent : calf tenderness, cyanotic, pedal edema - Neurological Exam Neurological exam: Present: CN II-XII intact, oriented X3, no focal deficits. Absent: pronater drift, facial droop, speech deficit - Skin Skin exam: Present: dry, intact
== END 2017-04-07 12:02 | disposition home or self-care (01) ==
LOC: 3BNU 11:56 → EMEROO 11:56 → SUATTDRO 16:13 → 3BNU 16:30
PROVIDERS: ADMIT Internal Medicine; ATTEND Internal Medicine